=== PATIENT | female | born 1955 | race Caucasian/White ===

== ENCOUNTER 2023-09-24 09:40 | Emergency (ER) | payer MEDICARE, OTHER, SELFPAY ==
[2023-09-24 09:41] VITALS: BP 114/62
--- NOTE | 2023-09-24 10:02 | ED.SKININJ ---
HPI-Injury
General
Chief Complaint: Bite
Source: patient
Exam Limitations: none
Time Seen by Provider: 09/24/23 09:49
Nursing documentation reviewed up to this point in time: agreed with
Travel History
Have you had any contact with someone who has COVID-19?: No
Do you have any symptoms of coronavirus? Fever > 100 degrees, chills, cough, shortness of breath, sore throat, loss of taste or smell, muscle aches, or headache?: No
History of Present Illness-Injury
Is this injury a work related problem?: No
Is pt an associate of [facility]?: No
Initial Injury comments:
This is a 67-year-old female with a past medical history of hypothyroid with concerns of exposure to rabies. Patient states that she was in her bedroom and she noticed a bat. Her was able to shoot it away to the outside but it returned. She
reports that there has been 3 separate instances where the bat has been in her bedroom and she states that it has been present while she was sleeping. She currently has no pain and was not able to identify any bite liz. She has no shortness of
breath, muscle rigidity, fevers or chills, abdominal pain, or other symptoms. She has never had to have a rabies vaccine before.
Review of Systems
Review of Systems
All Other Systems: ROS reviewed and negative except as documented in HPI and ROS
Phy Exam
Physical Exam
Physical Exam:
General: patient is well appearing and is in no acute distress
Skin: warm and dry, no rashes or lesions, no identifiable bite liz on the face, extremities, back, abdomen
Cardiac: regular rate and rhythm, no murmurs
Pulm: normal respiratory effort
Abdomen: abdomen is non-distended and non-tender
Course
Orders/Labs/Results
Orders:
Orders
09/24/23 10:14
Rabies Immune Globulin/Pf [HyperRAB] 1,358 unit IM NOW STA
09/24/23 10:15
Rabies Vaccine (Pcec)/Pf [Rabavert Rabies Vacc W-Diluent] 2.5 unit IM .ONCE ONE
Vital Signs
Initial and Last Documented VS:
Initial Vital Signs
Temp Pulse Resp BP Pulse Ox
97.4 F 74 16 114/62 100
09/24/23 09:41 09/24/23 09:41 09/24/23 09:41 09/24/23 09:41 09/24/23 09:41
Last Documented Vital Signs
Temp Pulse Resp BP Pulse Ox
97.4 F 74 16 118/78 99
09/24/23 09:41 09/24/23 11:00 09/24/23 11:00 09/24/23 11:00 09/24/23 11:00
MDM/Problems Addressed
Differential Diagnosis Includes:
possible rabies exposure
MDM/Problems Addressed:
post exposure rabies prophylaxis
Chronic conditions affecting care:
hypothyroidism
Acute Exacerbation and/or Progression of Chronic Illness:
n/a
*Pulse Oximetry
Patient hypoxic: no
*Critical Care Note
Total Time (30-74mins, 75-104mins- exclusive of procedures): Not Applicable
Data Reviewed
Review of Other/Old Records Reveals: Records (no previous records to review)
Patient Management
Escalation/DeEscalation of care consider admission/obs:
67 y/o female presenting today for post exposure rabies prophylaxis. Had bat in her bedroom while sleeping. given IM immunoglobin and rabies vaccine. I arranged for further vaccine doses, patient aware of instructions
ED Attending Note
-
Portions of this chart may have been created with voice recognition software.� Occasional wrong word or��sound alike� substitutions may have occurred due to the inherent limitations of voice recognition software.
Discharge Plan
Departure
Patient Disposition: Home (Routine Discharge)
Date of Disposition: 09/24/23
Time of Disposition: 10:27
Patient with high blood pressure during this ER visit?: No
Condition: Good
Discharge Problem:
Need for post exposure prophylaxis for rabies
Instructions: Rabies
Prescriptions:
New
Imovax Rabies Vaccine (PF) 2.5 unit recon soln
1 ml IM Q3D Qty: 1 0RF
Referrals:
Eitan Brown, DO [Family Provider] -
Stand Alone Forms: Rabies Vaccine Post Exp Dosing
Activity Restrictions/Additional Instructions:
Please call [phone] for an appointment at our outpatient infusion center where you can receive your remaining doses on 09/28/2023, 10/01/2023, 10/08/2023
Please return to the emergency department for any concern
Please follow up with your primary care provider
Interventions
Interventions:
*Risk Screen - Suicide Last Done: 09/24/23 10:13
*General Assessment Last Done: 09/24/23 09:41
*Neglect/Abuse Screening Last Done: 09/24/23 10:13
ED- Fall Risk Assessment Last Done: 09/24/23 11:00
*ED COVID-19 Vaccine History Last Done: 09/24/23 09:41
*Nursing Disposition Last Done: 09/24/23 11:00
ED-Skin Assessment Last Done: 09/24/23 10:13
Discharge Date and Time
Discharge Date/Time: 09/24/23 11:20
[2023-09-24] MEDS: RABAVERT RABIES VACC W-DILUENT 2.5 UNIT IM (10:46)
[2023-09-24] MEDS: HyperRAB 1358 UNIT IM (10:49)
[2023-09-24 11:00] VITALS: BP 118/78
== END 2023-09-24 11:20 | disposition home or self-care (01) ==
LOC: EMR 09:40
PROVIDERS: EMERGENCY PHYSICIAN Emergency Medicine; FAMILY PHYSICIAN Family Medicine
DX: Z20.3 Contact with and (suspected) exposure to rabies (principal); Z23 Encounter for immunization; E03.9 Hypothyroidism, unspecified
CPT/HCPCS: 99282; 90471; 96372; 90375; 90675

== ENCOUNTER 2023-10-08 14:31 | Outpatient (RCR) | payer MEDICARE, OTHER, SELFPAY ==
[2023-09-28 15:03] VITALS: BP 115/79
[2023-09-28] MEDS: RABAVERT RABIES VACC W-DILUENT 2.5 UNIT IM (15:41)
[2023-10-01 15:10] VITALS: BP 103/72
[2023-10-01] MEDS: RABAVERT RABIES VACC W-DILUENT 2.5 UNIT IM (15:23)
[2023-10-08 14:30] VITALS: BP 115/64
[2023-10-08] MEDS: RABAVERT RABIES VACC W-DILUENT 2.5 UNIT IM (14:51)
== END 2023-10-09 09:47 | disposition home or self-care (01) ==
LOC: OID 14:31
PROVIDERS: ATTENDING PHYSICIAN Emergency Medicine; FAMILY PHYSICIAN Family Medicine
DX: Z20.3 Contact with and (suspected) exposure to rabies (principal); Z23 Encounter for immunization
CPT/HCPCS: 90471; 90675